=== PATIENT | male | born 1995 | race African-American/Black ===

== ENCOUNTER 2018-02-15 10:12 | Emergency (ER) | payer SELFPAY ==
[~2018-02-15] VITALS: Ht 175.3 cm; Wt 77.1 kg
--- NOTE | 2018-02-15 10:15 | NUR ---
PT AMBULATED TO ER BED 12
[2018-02-15 10:18] VITALS: BP 144/99
--- NOTE | 2018-02-15 10:29 | NUR ---
PATIENT PRESENTS TO ED WITH THE CHIEF C/O BURNING URINATION AND PENILE DISCHARGE. PT STATES SYMPTOMS STARTED 5 DAYS AGO. NO DOCTOR VISIT. NOT TAKING ANY MEDICINE. DENIES MEDICAL HX. AFEBRILE AT THIS TIME. DENIES N/V/D; SKIN IS PINK/WARM/DRY; AAOX4 WITH EVEN AND STEADY GAIT. PT DENIES ANY FEVER, CP, SOB, OR COUGH AT THIS TIME; PATIENT STATES PAIN OF 0/10 AT THIS TIME; VSS; PATIENT POSITIONED FOR COMFORT; HOB ELEVATED; BEDRAILS UP X2; BED DOWN. ER MD MADE AWARE OF PT STATUS.
[2018-02-15] MEDS ORDERED: LEVOFLOXACIN 500 MG TAB PO ONE (10:30)
[2018-02-15] MEDS ORDERED: cefTRIAXone 1,000 MG in LIDOCAINE 1% ***ER ONLY *** 2.1 ML IM ONE (10:30)
--- NOTE | 2018-02-15 10:32 | NUR ---
PT EVELUATED BY DR. SEGUNDO, RECOMMENDED TO F/U WITH [facility].
[2018-02-15] MEDS ORDERED: cefTRIAXone 1,000 MG VIAL ONE ×3 (10:43→11:12)
[2018-02-15] MEDS ORDERED: LIDOCAINE MPF 1% - 5 mL VIAL 5 ML ONE (11:12)
--- NOTE | 2018-02-15 11:19 | NUR ---
Patient discharged with v/s stable. Written and verbal after care instructions given and explained. Patient alert, oriented and verbalized understanding of instructions. Ambulatory with steady gait. All questions addressed prior to discharge. ID band removed. Patient advised to follow up with [facility] and [facility]. Rx of DOXYCYCLINE given. Patient educated on indication of medication including possible reaction and side effects. Opportunity to ask questions provided and answered.
[2018-02-15 11:20] VITALS: BP 99/60
== END 2018-02-15 11:19 | disposition home or self-care (01) ==
LOC: MED 10:12
DX: N34.2 Other urethritis (principal); Z20.2 Contact with and (suspected) exposure to infections with a predominantly sexual mode of transmission
CPT/HCPCS: 96372; 99283; J0696; J2001